=== PATIENT | male | born 1950 | race Caucasian/White ===

== ENCOUNTER → 2020-12-20 13:36 | Outpatient (CLI) | payer MEDICARE, SELFPAY ==
--- NOTE | 2020-12-20 | DI.ECHO.S_ITS ---
[facility] +---------+ : : [address] : : [place] : : : : [id number] : : : : Phone: [phone]---------+ Echocardiogram Report + + :Name: SALAZAR ANDERS Study Date: 12/20/2020 Height: 66 in : :[facility] ReadingLocation: Weight: 175 lb : : Gender: Male BSA: 1.9 m2 : :: 1950 Age: 70 yrs BP: 128/83 mmHg: :Reason For Study: ATHEROSCLEROTIC HEART DISEASE : :Ordering Physician: ALVINA, : :ROBERT Performed By: Melissa Ragsdale : :Referring: ROBERT MILLER : + + Interpretation Summary The left ventricle is normal in size and wall thickness. The ejection fraction is estimated to be 50-55%. Left ventricular systolic function has slightly improved compared to the previous exam. Mild hypokinesis along the inferolateral, and basal inferior segments. Wall motion abnormalities from prior echo study have overall improved. Diastolic parameters suggest a relaxation abnormality of the left ventricle, consistent with probable normal filling pressures. The right ventricle is normal in size and function. Pulmonary artery pressures cannot be estimated because of the lack of a measurable TR jet velocity but the IVC suggests a CVP of around 3 mmHg. The left atrium is mildly dilated. Right atrial size is normal. There is no significant valvular heart disease. The aortic root is normal size. Procedure: A two-dimensional transthoracic echocardiogram with color flow and Doppler was performed. The study quality was technically adequate. Comparison is made with the echocardiogram of 04/29/2020. The patient was in sinus rhythm with heart rates between 55-65 bpm during the exam. Left Ventricle: The left ventricle is normal in size and wall thickness. The ejection fraction is estimated to be 50-55%. Left ventricular systolic function has slightly improved compared to the previous exam. Mild hypokinesis along the inferolateral, and basal inferior segments. Wall motion abnormalities from prior echo study have overall improved. Diastolic parameters suggest a relaxation abnormality of the left ventricle, consistent with probable normal filling pressures. Right Ventricle: The right ventricle is normal in size and function. Atria: The left atrium is mildly dilated. Right atrial size is normal. There is no Doppler evidence for an interatrial shunt. Mitral Valve: The mitral valve is normal in structure and function. There is trace mitral regurgitation. Aortic Valve: The aortic valve is trileaflet. The aortic valve opens well. There is no aortic valve stenosis. No aortic regurgitation is present. Tricuspid Valve: The tricuspid valve is normal in structure and function. No tricuspid regurgitation. Pulmonary artery pressures cannot be estimated because of the lack of a measurable TR jet velocity but the IVC suggests a CVP of around 3 mmHg. Pulmonic Valve: The pulmonic valve leaflets are thin and pliable; valve motion is normal. There is trace pulmonic regurgitation. There is no significant valvular heart disease. Great Vessels: The aortic root is normal size. The dimensions of the ascending aorta are normal. The IVC is of normal diameter and collapses greater than 50% with a sniff. This suggests a low right atrial pressure of 3 mm Hg. Pericardium/ Pleura There is no pericardial effusion. There is no pleural effusion. MMode/2D Measurements & Calculations LVIDd: 5.4 cm LVOT diam: 2.1 cm LVIDs: 3.9 cm Ao root diam: 3.2 cm FS: 27.1 % asc Aorta Diam: 3.3 cm EPSS: 1.2 cm Ao Arch Diam (Prox Trans): 3.0 cm IVSd: 0.75 cm LVPWd: 0.73 cm LV gonzalez. diameter/BSA (cm/m^2): 2.9 LV sys. diameter/BSA (cm/m^2): 2.1 LA A2 area: 21.1 cm2 RA long axis: 5.7 cm LA A4 area: 23.4 cm2 RA area: 18.6 cm2 LA length (vol): 5.5 cm RA vol: 51.8 ml LA vol: 76.8 ml RA : 27.4 ml/m2 LA vol index: 40.6 ml/m2 IVC diam: 0.98 cm RVD1 (basal): 3.7 cm TAPSE: 2.4 cm Doppler Measurements & Calculations Ao V2 max: 99.9 cm/sec LVOT Max Sterling: 65.4 cm/sec Ao V2 mean: 71.0 cm/sec LV V1 max P.7 mmHg Ao max P.0 mmHg LV V1 VTI: 16.0 cm Ao mean P.3 mmHg HANNAH(I,D): 2.2 cm2 Ao V2 VTI: 24.3 cm HANNAH(V,D): 2.2 cm2 sev ratio: 0.66 HANNAH indexed to BSA (cm^2/m^2): 1.2 MV E max sterling: 53.7 cm/sec PA V2 max: 86.6 cm/sec MV A max sterling: 64.2 cm/sec PA V2 mean: 63.2 cm/sec MV E/A: 0.84 PA mean P.8 mmHg Med Peak E' Sterling: 5.8 cm/sec PA pr(Accel): 32.8 mmHg E/E' med: 9.3 Lat Peak E' Sterling: 8.5 cm/sec E/E' lat: 6.3 E/e' average: 7.8 MV dec time: 0.23 sec SV(LVOT): 54.6 ml Reading Physician:08:58 AM
== END ==
PROVIDERS: PCP Family Medicine; Referring Provider Internal Medicine Cardiovascular Disease; Visit Provider Internal Medicine Cardiovascular Disease
DX: I25.10 Atherosclerotic heart disease of native coronary artery without angina pectoris (principal); I25.5 Ischemic cardiomyopathy
CPT/HCPCS: 93306